=== PATIENT | female | born 1950 | race Caucasian/White ===

== ENCOUNTER 2016-12-08 18:34 | Emergency (ER) | payer SELFPAY ==
[2016-12-08 18:55] VITALS: O2SAT 97
[2016-12-08] MEDS ORDERED: Tetracaine 0.5% Ophth (OR ONLY) ONE (19:54)
[2016-12-08] MEDS ORDERED: Fluorescein 1 mg Ophthalmic Strip ONE (19:54)
--- NOTE | 2016-12-08 20:22 | C.PDOC ---
History Of Present Illness 66 year old patient, with a past medical history of hypertension, presents to the ED complaining of right eye pain and blurry vision for the past 3 days. History obtained by patient's son who translated. Patient states her right eye was itchy which made her rub it vigorously for the past 2 days. Patient has a history of lens repair surgery from 10 years ago in [place] s/p traumatic injury. She had adequate vision after the surgery. Patient denies new trauma or injury, headache, facial pain, or purulent discharge from right eye. Time Seen by Provider: 12/08/16 19:16 Chief Complaint (Nursing): Eye Problem History Per: Patient History/Exam Limitations: no limitations Onset/Duration Of Symptoms: Days (3) Current Symptoms Are (Timing): Still Present Injury To Eye?: No Severity: Moderate Pain Scale Rating Of: 4 Quality: "Pain" Wears Contact Lens?: No Associated Symptoms: Pain, Decreased Vision, Itching Recent travel outside of the [place]: No Past Medical History Reviewed: Historical Data, Nursing Documentation, Vital Signs Vital Signs: Last Vital Signs Temp 98.0 F 12/08/16 20:50 Pulse 70 12/08/16 20:50 Resp 20 12/08/16 20:50 BP 133/70 12/08/16 20:50 Pulse Ox 97 12/08/16 23:14 - Medical History PMH: HTN Family History: States: Unknown Family Hx - Social History Hx Alcohol Use: No Hx Substance Use: No - Immunization History Hx Influenza Vaccination: Yes Review Of Systems Except As Marked, All Systems Reviewed And Found Negative. Eyes: Positive for: Pain (right), Vision Change (right). Negative for: Other ( purulent discharge) Musculoskeletal: Negative for: Other (facial pain) Neurological: Negative for: Headache Physical Exam - Physical Exam Appears: Non-toxic, No Acute Distress Skin: Warm, Dry Head: Atraumatic, Normacephalic Eye(s): bilateral: EOMI, right: Abnormal Pupil, Other ((-)reactive (-) conjunctival erythema (-)purulent discharge (+)visual acuity: unable to see on the right (+)corneal abrasion to the lateral half of the right cornea), left: Normal Inspection Neurological/Psych: Oriented x3, Normal Speech, Normal Cranial Nerves Gait: Steady ED Course And Treatment O2 Sat by Pulse Oximetry: 97 (RA) Pulse Ox Interpretation: Normal Progress Note: Tobramycin drops given. Patient is instructed to follow up with opthamologist. Return if symptoms worsen. Disposition Counseled Patient/Family Regarding: Diagnosis, Need For Followup, Rx Given - Disposition Disposition: HOME/ ROUTINE Disposition Time: 20:21 Condition: STABLE Additional Instructions: Please follow up with Dr Hewitt- Eye doctor tomorrow Return to ER if worse Prescriptions: Tobramycin 0.3% [Tobrex] 0.3 unit OD TID #1 tube Instructions: Corneal Abrasion (ED) - Clinical Impression Clinical Impression: Corneal abrasion, Pain in eye - PA / CLERK SECRETARY / Resident Statement MD/DO has reviewed & agrees with the documentation as recorded. - Scribe Statement The provider has reviewed the documentation as recorded by the Scribe Ernestine Hay All medical record entries made by the Scribe were at my direction and personally dictated by me. I have reviewed the chart and agree that the record accurately reflects my personal performance of the history, physical exam, medical decision making, and the department course for this patient. I have also personally directed, reviewed, and agree with the discharge instructions and disposition.
[2016-12-08 21:02] VITALS: BP 133/70; PULSE 70; RESP 20; TEMP 98
== END 2016-12-08 20:50 | disposition home or self-care (01) ==
LOC: C.ER 18:34
DX: S05.01XA Injury of conjunctiva and corneal abrasion without foreign body, right eye, initial encounter (principal); X58.XXXA Exposure to other specified factors, initial encounter; Y93.9 Activity, unspecified; Y92.9 Unspecified place or not applicable

== ENCOUNTER 2018-03-05 22:18 | Emergency (ER) | payer SELFPAY ==
[2018-03-06 00:02] LABS: SQUAMOUS EPITHIAL 2 /hpf (0-5); URINE BACTERIA OCC (<OCC); URINE BILIRUBIN NEGATIVE (NEGATIVE); URINE BLOOD 1+ (NEGATIVE); URINE CLARITY Clear (Clear); URINE COLOR Yellow (YELLOW); URINE GLUCOSE (UA) NORMAL (Normal); URINE LEUKOCYTE ESTERASE TRACE Leu/uL (Negative); URINE PROTEIN NEGATIVE (NEGATIVE); URINE UROBILINOGEN NORMAL mg/dL (0.2-1.0)
[2018-03-06 00:04] LABS: BASO % 0.7 % (0.0-2.0); EOS # 0.2 K/uL (0.0-0.7); EOS % 3.6 % (0.0-4.0); HEMOGLOBIN 11.8 g/dL (11.0-16.0); LYMPH # 2.2 K/uL (1.0-4.3); LYMPH % 35.2 % (20.0-40.0); MEAN CELL VOLUME 80.2 fL (81.0-99.0); MEAN CORPUSCULAR HGB CONC 33.6 g/dL (33.0-37.0); MEAN PLATELET VOLUME 9.1 fL (7.2-11.7); MONO # 0.5 K/uL (0.0-0.8); MONO % 7.8 % (0.0-10.0); NEUT # 3.3 K/uL (1.8-7.0); NEUT % 52.7 % (50.0-75.0); RBC 4.39 Mil/uL (3.80-5.20); RED CELL DISTRIBUTION WIDTH 13.9 % (11.5-14.5); WHITE BLOOD COUNT 6.2 K/uL (4.8-10.8)
[2018-03-06 00:11] LABS: ALB/GLOB RATIO 1.1 (1.0-2.1); ALBUMIN 4.2 g/dL (3.5-5.0); ALT/SGPT 24 U/L (9-52); AST/SGOT 21 U/L (14-36); BLOOD UREA NITROGEN 25 mg/dL (7-17); CALCIUM 9.3 mg/dl (8.6-10.4); GFR AFRICAN-AMERICAN > 60; GFR NON-AFRICAN AMERICAN > 60; LIPASE 88 U/L (23-300)
[2018-03-06] MEDS ORDERED: Morphine 4 MG/ML VIAL ONE (00:18)
--- NOTE | 2018-03-06 00:19 | C.PDOC ---
History Of Present Illness <Tristan Givens - Last Filed: 03/06/18 00:33> <Jeremiah Denis - Last Filed: 03/06/18 03:31> History obtained by Credit Portfolio Manager. 67 year old female presents to the ED c/o right sided abdominal pain for the past 3 days. Patient has been using an ointment with no relief and has not taken ant other medication for it. Patient has no previous abdominal surgeries. Patient denies fever, chills, nausea, vomit, diarrhea, dysuria, hematuria. (Tristan Givens) History Per: Patient History/Exam Limitations: no limitations Onset/Duration Of Symptoms: Days (3) Current Symptoms Are (Timing): Still Present Location Of Pain/Discomfort: Diffuse Quality Of Discomfort: "Pain" Associated Symptoms: Constipation. denies: Nausea, Vomiting, Diarrhea Exacerbating Factors: None Alleviating Factors: None Last Bowel Movement: Today Recent travel outside of the [place]: No Additional History Per: Patient Abnormal Vaginal Bleeding: No <Tristan Givens - Last Filed: 03/06/18 00:33> <Jeremiah Denis - Last Filed: 03/06/18 03:31> Time Seen by Provider: 03/05/18 23:15 Chief Complaint (Nursing): Abdominal Pain Past Medical History Reviewed: Historical Data, Nursing Documentation, Vital Signs - Medical History PMH: HTN Surgical History: No Surg Hx Family History: States: Unknown Family Hx - Social History Hx Alcohol Use: No Hx Substance Use: No - Immunization History Hx Influenza Vaccination: Yes <Tristan Givens - Last Filed: 03/06/18 00:33> Vital Signs: Last Vital Signs Temp 98.5 F 03/06/18 03:01 Pulse 69 03/06/18 03:01 Resp 18 03/06/18 03:01 BP 109/65 03/06/18 03:01 Pulse Ox 99 03/06/18 03:01 Review Of Systems Constitutional: Negative for: Fever, Chills Cardiovascular: Negative for: Chest Pain Respiratory: Negative for: Shortness of Breath Gastrointestinal: Positive for: Abdominal Pain, Constipation. Negative for: Nausea, Vomiting, Diarrhea Genitourinary: Negative for: Dysuria, Hematuria Musculoskeletal: Negative for: Back Pain <Tristan Givens - Last Filed: 03/06/18 00:33> Physical Exam - Physical Exam Appears: Non-toxic, No Acute Distress, Other (morbidly obese) Skin: Normal Color, Warm, Dry, Rash (questionable lazy rash on dermatome right sided abdomen, non vesicular, non tender. cosistent with waistband) Head: Atraumatic, Normacephalic Eye(s): bilateral: Normal Inspection Oral Mucosa: Moist Neck: Normal ROM, Supple Chest: Symmetrical Cardiovascular: Rhythm Regular Respiratory: Normal Breath Sounds, No Rales, No Rhonchi, No Wheezing Gastrointestinal/Abdominal: Soft, Tenderness (right sided abdomen, floating rib area), No Guarding, No Rebound, Other (obese) Extremity: Normal ROM, No Tenderness, No Swelling Neurological/Psych: Oriented x3, Normal Speech Gait: Steady <Tristan Givens Noe Filed: 03/06/18 00:33> ED Course And Treatment - Laboratory Results Result Diagrams: 03/05/18 23:54 03/05/18 23:54 Lab Interpretation: Normal (ua neg.) O2 Sat by Pulse Oximetry: 98 (ON RA) Pulse Ox Interpretation: Normal Reevaluation Time: 00:33 Reassessment Condition: Improved <Tristan Givens Sweta Liu Filed: 03/06/18 00:33> - Laboratory Results Result Diagrams: 03/05/18 23:54 03/05/18 23:54 - CT Scan/US CT abd/pelvis Other Rad Studies (CT/US): Read By Radiologist, Radiology Report Reviewed CT/US Interpretation: FINDINGS: Artifacts: Limited due to motion and misregistration artifacts. Lung bases: Unremarkable. Heart: Small pericardial effusion. Small hiatal hernia. ABDOMEN: Liver: Fatty nodular liver. Gallbladder and bile ducts: Contracted gallbladder with gallstone and gallbladder wall thickening. Pancreas: Unremarkable. No mass. No ductal dilation. Spleen: Left upper quadrant splenule. Adrenals: Unremarkable. No mass. Kidneys and ureters: Nonobstructive left renal staghorn calculus. Right renal parapelvic cyst.There. are renal hypodensities too small to characterize. Stomach and bowel: Diverticulosis. No obstruction. No mucosal thickening. PELVIS: Appendix: Normal appendix. Bladder: Unremarkable. Reproductive: Uterus is seen. ABDOMEN and PELVIS: Intraperitoneal space: Unremarkable. No free air. No significant fluid collection. Bones/joints: Multilevel vacuum disc degenerative changes. No acute fracture. No dislocation. Soft tissues: There is a fat-containing umbilical hernia. Vasculature: Unremarkable. No abdominal aortic aneurysm. Lymph nodes: Unremarkable. No enlarged lymph nodes. IMPRESSION: 1. Contracted gallbladder with gallstone and gallbladder wall thickening.If clinically warranted, a right. upper quadrant ultrasound and correlation with LFTs may be helpful for further assessment. Thank you for allowing us to participate in the care of your patient. Dictated and Authenticated by: Heriberto Mcginnis MD. 03/06/2018 3:20 AM Eastern Time ([place] & [place]) <Jeremiah Denis - Last Filed: 03/06/18 03:31> Medical Decision Making <Tristan Givens - Last Filed: 03/06/18 00:33> <Jeremiah Denis - Last Filed: 03/06/18 03:31> Medical Decision Making: Impression: right sided abdominal pain Plan: * CT abd/pelvis * Obs series X-Ray * Morphine 4 mg IVP * Toradol 30 mg IVP * UA DDX: Zoster R abd dermatome costochondritis R lower ribs constipation (Tristan Givens) Disposition - Disposition Disposition Time: 01:00 <Tristan Givens - Last Filed: 03/06/18 00:33> Counseled Patient/Family Regarding: Diagnosis - Disposition Disposition Time: 03:28 - POA Present On Arrival: None <Jeremiah Denis - Last Filed: 03/06/18 03:31> - Disposition Referrals: [facility] [Outside] Condition: STABLE Prescriptions: Dicyclomine [Dicyclomine HCl] 10 mg PO QID #14 cap Instructions: Gallstones (DC), Low Cholesterol, Saturated Fat, and Trans Fat Diet Forms: [employer] (Malian) - Clinical Impression Clinical Impression: Abdominal pain, Gall bladder pain, Gall bladder stones - Scribe Statement The provider has reviewed the documentation as recorded by the Scribe <Tristan Givens - Last Filed: 03/06/18 00:33> <Jeremiah Denis - Last Filed: 03/06/18 03:31> - Scribe Statement Andreas Hammond All medical record entries made by the Scribe were at my direction and personally dictated by me. I have reviewed the chart and agree that the record accurately reflects my personal performance of the history, physical exam, medical decision making, and the department course for this patient. I have also personally directed, reviewed, and agree with the discharge instructions and disposition. (Tristan Givens) Physician Patient Turnover Patient Signed Over To: Jeremiah Denis Handoff Comments: follow-up CT and dispo appropriately. <Tristan Givens - Last Filed: 03/06/18 00:33>
[2018-03-06] MEDS ORDERED: Iodixanol 320 MG/ML 100 ML BOTTLE IV ONE (01:04)
[2018-03-06 03:02] VITALS: O2SAT 99
[2018-03-06 04:11] VITALS: BP 132/76; PULSE 82; RESP 16; TEMP 97.8
--- NOTE | 2018-03-06 09:58 | CT ---
PROCEDURE: CT Abdomen and Pelvis with contrast HISTORY: Right-sided abdominal pain x 3 days COMPARISON: None. TECHNIQUE: CT scan of the abdomen and pelvis was performed after administration of intravenous contrast. Oral contrast was not administered. Coronal and sagittal reformatted images were obtained. Contrast dose: 100 mL Visipaque Radiation dose: Total exam DLP = 1080.94 mGy-cm. This CT exam was performed using one or more of the following dose reduction techniques: Automated exposure control, adjustment of the mA and/or kV according to patient size, and/or use of iterative reconstruction technique. FINDINGS: LOWER THORAX: The visualized lungs are clear. Trace pericardial effusion LIVER: Mild hepatomegaly and fatty infiltration in the liver. There is mild dilatation of intrahepatic biliary radicles. GALLBLADDER AND BILE DUCTS: The gallbladder is partially distended. There is a solitary calcified gallstone. There is mild diffuse dilatation of the common bile duct without CT evidence for choledocholithiasis. PANCREAS: Mild fatty and trophy. No gross lesion or ductal dilatation. SPLEEN: Normal in size and appearance. ADRENALS: No discrete nodule. KIDNEYS AND URETERS: Normal in size with homogeneous enhancement. Right parapelvic simple cyst. There is a staghorn calculus in the upper pole. No hydronephrosis. No solid mass. VASCULATURE: Unremarkable. No aortic aneurysm. BOWEL: The small bowel loops are normal in caliber. The colon is unremarkable. No obstruction. No gross mural thickening. APPENDIX: Normal appendix. PERITONEUM: No free fluid. No free air. LYMPH NODES: No enlarged lymph nodes. BLADDER: Unremarkable. REPRODUCTIVE: Unremarkable. BONES: No acute fracture. Within normal limits for the patient's age. OTHER FINDINGS: There is a small fat containing umbilical hernia. IMPRESSION: Cholelithiasis, mild intrahepatic biliary ductal dilatation and mild diffuse dilatation of the common bile duct without CT evidence for choledocholithiasis. Please correlate with right upper quadrant ultrasound. No acute abdominal or pelvic abnormality. Staghorn stone in the left upper pole. Mild hepatomegaly and fatty liver. A preliminary report was provided by [facility].
== END 2018-03-06 04:11 | disposition home or self-care (01) ==
LOC: C.ER 22:18
DX: K80.20 Calculus of gallbladder without cholecystitis without obstruction (principal); R10.9 Unspecified abdominal pain
CPT/HCPCS: 74177; 80053; 81001; 83690; 85025; 96374; 99284; J1885; J2270; Q9967